=== PATIENT | female | born 1970 ===

== ENCOUNTER 2017-09-07 09:57 | Emergency (ER) | payer OTHER ==
[2017-09-07 10:11] VITALS: RESP 18; TEMP 98.3; O2SAT 98
--- NOTE | 2017-09-07 10:20 | ED PDOC ---
Arrival/HPI - General Chief Complaint: Lower Extremity Problem/Injury Time Seen by Provider: 09/07/17 10:13 Historian: Patient - History of Present Illness Narrative History of Present Illness (Text): 09/07/17 10:17 47yo female with no PMHx who present with complaint of right ankle/foot pain/ swelling. she notes that she twisted her ankle yesterday, when she slipped while walking down stairs. states she was ambulating yesterday, but pain became severe this morning. Took Tylenol without relieve. Pain with weight bearing. denies any other complaint. Past Medical History - Provider Review Nursing Documentation Reviewed: Yes - Psychiatric Hx Substance Use: No Family/Social History - Physician Review Nursing Documentation Reviewed: Yes Family/Social History: Unknown Family HX Smoking Status: Never Smoked Hx Alcohol Use: Yes Frequency of alcohol use: Socially Hx Substance Use: No Allergies/Home Meds Allergies/Adverse Reactions: Allergies No Known Allergies Allergy (Verified 09/07/17 10:10) Review of Systems - Physician Review All systems were reviewed & negative as marked: Yes - Review of Systems Constitutional: Normal Eyes: Normal ENT: Normal Respiratory: Normal Cardiovascular: Normal Gastrointestinal: Normal Genitourinary Female: Normal Musculoskeletal: Arthralgias (Right ankle/foot pain) Skin: Normal Neurological: Normal Endocrine: Normal Hemo/Lymphatic: Normal Psychiatric: Normal Physical Exam Vital Signs Reviewed: Yes Vital Signs Temp Pulse Resp BP Pulse Ox 09/07/17 12:04 82 18 125/70 98 09/07/17 11:15 86 18 124/65 98 09/07/17 10:07 98.3 F 90 18 128/66 98 Temperature: Afebrile Blood Pressure: Normal Pulse: Regular Respiratory Rate: Normal Appearance: Positive for: Well-Appearing, Non-Toxic, Comfortable Pain Distress: None Mental Status: Positive for: Alert and Oriented X 3 - Systems Exam Head: Present: Atraumatic, Normocephalic Pupils: Present: PERRL Extroacular Muscles: Present: EOMI Conjunctiva: Present: Normal Mouth: Present: Moist Mucous Membranes Neck: Present: Normal Range of Motion Respiratory/Chest: Present: Clear to Auscultation, Good Air Exchange. No: Respiratory Distress, Accessory Muscle Use Cardiovascular: Present: Regular Rate and Rhythm, Normal S1, S2. No: Murmurs Abdomen: Present: Normal Bowel Sounds. No: Tenderness, Distention, Peritoneal Signs Back: Present: Normal Inspection Upper Extremity: Present: Normal Inspection. No: Cyanosis, Edema Lower Extremity: Present: NORMAL PULSES, Normal ROM (with pain), Tenderness ( right ankle/foot), Swelling (right ankle/foot), Neurovascularly Intact. No: Edema Neurological: Present: GCS=15, CN II-XII Intact, Speech Normal Skin: Present: Warm, Dry, Normal Color. No: Rashes Psychiatric: Present: Alert, Oriented x 3, Normal Insight, Normal Concentration Medical Decision Making ED Course and Treatment: 09/07/17 11:32 Right foot/ankle xray - No acute fracture notes Result was DW the pt Pt likely have a bad sprain. Posterior splint placed. crutches given. Pt advised to RICE foot Referred to ortho TRT ED for any new or worsening symptoms - RAD Interpretation Radiology Orders: 09/07/17 10:15 ANKLE RIGHT 3 VIEWS ROUTINE [RAD] Stat 09/07/17 10:16 FOOT RIGHT 3 VIEWS ROUTINE [RAD] Stat - Medication Orders Current Medication Orders: Discontinued Medications Ibuprofen (Motrin Tab) 800 mg PO STAT STA Stop: 09/07/17 10:18 Last Admin: 09/07/17 10:42 Dose: 800 mg Disposition/Present on Arrival - Present on Arrival Any Indicators Present on Arrival: No History of DVT/PE: No History of Uncontrolled Diabetes: No Urinary Catheter: No History of Decub. Ulcer: No History Surgical Site Infection Following: None - Disposition Have Diagnosis and Disposition been Completed?: Yes Diagnosis: Ankle sprain Disposition: HOME/ ROUTINE Disposition Time: 11:35 Patient Plan: Discharge Condition: STABLE Discharge Instructions (ExitCare): Ankle Sprain (ED) Additional Instructions: Rest, Ice, compress and elevate foot Follow up with your doctor/orthopedist Return to ED for any new symptoms Prescriptions: Ibuprofen [Motrin Tab] 800 mg PO Q6 #20 tab Referrals: Oziel Brannon, [Primary Care Provider] - Follow up with primary Katy Joel MD [Staff Provider] - Follow up with primary Forms: [employer] (Romanian), WORK NOTE
--- NOTE | 2017-09-07 11:59 | RAD ---
PROCEDURE: Right Ankle Radiographs. HISTORY: ankle pain COMPARISON: None FINDINGS: BONES: No acute fracture. Small Achilles tendon insertion spur. JOINTS: Normal. No osteoarthritis. Ankle mortise maintained. Talar dome intact SOFT TISSUES: Normal. OTHER FINDINGS: None. IMPRESSION: No acute findings related to/accounting for the clinical presentation. Additional benign and/or incidental findings described above.
--- NOTE | 2017-09-07 12:00 | RAD ---
PROCEDURE: Right Foot Radiographs. HISTORY: Posttraumatic foot and ankle pain COMPARISON: NoneYuko Nguyen 2017. Right ankle reported separately. FINDINGS: BONES: Normal. No fracture. JOINTS: Normal. SOFT TISSUES: Normal. OTHER FINDINGS: None. IMPRESSION: No acute findings related to/accounting for the clinical presentation.
[2017-09-07 12:05] VITALS: BP 125/70; PULSE 82
== END 2017-09-07 12:06 | disposition home or self-care (01) ==
LOC: ED 09:57
DX: S93.401A Sprain of unspecified ligament of right ankle, initial encounter (principal); W01.0XXA Fall on same level from slipping, tripping and stumbling without subsequent striking against object, initial encounter

== ENCOUNTER 2017-09-11 23:00 | Emergency (ER) | payer OTHER ==
[2017-09-11 23:34] VITALS: BMI 29.7
--- NOTE | 2017-09-11 23:34 | ED PDOC ---
Arrival/HPI - General Historian: Patient <Nevin Fitzgerald Lillie - Last Filed: 09/12/17 01:18> <Yinka Silverman - Last Filed: 09/12/17 01:42> - General Time Seen by Provider: 09/11/17 23:27 - History of Present Illness Narrative History of Present Illness (Text): 09/11/17 23:31 47yo female in ED for right foot/ankle pain. Patient states she was seen here on Wednesday for same foot pain s/p trauma. She was DC home with a splint. States she took out the splint today and while trying to walk, she heard a "popping" sound and then pain became worse this morning. She denies calf pain, SOB, chest pain, diaphoresis. (Nevin Fitzgerald A) Past Medical History - Provider Review Nursing Documentation Reviewed: Yes - Psychiatric Hx Substance Use: No <Nevin Fitzgerald A - Last Filed: 09/12/17 01:18> Family/Social History - Physician Review Nursing Documentation Reviewed: Yes Family/Social History: Unknown Family HX Smoking Status: Never Smoked Hx Alcohol Use: Yes Hx Substance Use: No <Nevin Fitzgerald A - Last Filed: 09/12/17 01:18> Allergies/Home Meds <Nevin Fitzgerald A - Last Filed: 09/12/17 01:18> <Yinka Silverman - Last Filed: 09/12/17 01:42> Allergies/Adverse Reactions: Allergies No Known Allergies Allergy (Verified 09/07/17 10:10) Review of Systems - Physician Review All systems were reviewed & negative as marked: Yes - Review of Systems Constitutional: Normal Eyes: Normal ENT: Normal Respiratory: Normal Cardiovascular: Normal Gastrointestinal: Normal Genitourinary Female: Normal Musculoskeletal: Arthralgias (Right foot/ankle pain) Skin: Normal Neurological: Normal Endocrine: Normal Hemo/Lymphatic: Normal Psychiatric: Normal <Nevin Fitzgerald A - Last Filed: 09/12/17 01:18> Physical Exam Vital Signs Reviewed: Yes Temperature: Afebrile Blood Pressure: Normal Pulse: Regular Respiratory Rate: Normal Appearance: Positive for: Well-Appearing, Non-Toxic, Comfortable Pain Distress: None Mental Status: Positive for: Alert and Oriented X 3 - Systems Exam Head: Present: Atraumatic, Normocephalic Pupils: Present: PERRL Extroacular Muscles: Present: EOMI Conjunctiva: Present: Normal Mouth: Present: Moist Mucous Membranes Neck: Present: Normal Range of Motion Respiratory/Chest: Present: Clear to Auscultation, Good Air Exchange. No: Respiratory Distress, Accessory Muscle Use Cardiovascular: Present: Regular Rate and Rhythm, Normal S1, S2. No: Murmurs Abdomen: Present: Normal Bowel Sounds. No: Tenderness, Distention, Peritoneal Signs Back: Present: Normal Inspection Upper Extremity: Present: Normal Inspection. No: Cyanosis, Edema Lower Extremity: Present: NORMAL PULSES, Normal ROM (With pain), Tenderness ( Right foot/ankle), Swelling, Temperature Abnormalties. No: Edema, CALF TENDERNESS Neurological: Present: GCS=15, CN II-XII Intact, Speech Normal Skin: Present: Warm, Dry, Normal Color. No: Rashes Psychiatric: Present: Alert, Oriented x 3, Normal Insight, Normal Concentration <Nevin Fitzgerald - Last Filed: 09/12/17 01:18> Vital Signs Pulse Resp BP Pulse Ox 09/11/17 23:34 112 H 18 130/73 99 Medical Decision Making <Nevin Fitzgerald - Last Filed: 09/12/17 01:18> <Yinka Silverman - Last Filed: 09/12/17 01:42> ED Course and Treatment: 09/12/17 01:20 Right foot/ankle xray - No acute fracture. xray was compared to xray from the and it remain same. Dr. Silverman also reviewed xray Result was DW the pt. Jung wrap and air cast was placed. Pt already have crutches at home and was instructed to continue using it. Referred to ortho again. Advised to RICE ankle/foot again. (Nevin Fitzgerald A) - RAD Interpretation Radiology Orders: 09/11/17 23:28 ANKLE RIGHT 3 VIEWS ROUTINE [RAD] Stat FOOT RIGHT 3 VIEWS ROUTINE [RAD] Stat - PA / RESTAURANT RECRUITER / Resident Statement / has reviewed & agrees with the documentation as recorded. / has examined the patient and agrees with the treatment plan. <Yinka Silverman - Last Filed: 09/12/17 01:42> Disposition/Present on Arrival - Present on Arrival Any Indicators Present on Arrival: No History of DVT/PE: No History of Uncontrolled Diabetes: No Urinary Catheter: No History Surgical Site Infection Following: None - Disposition Have Diagnosis and Disposition been Completed?: Yes Disposition Time: 01:20 Patient Plan: Discharge <Nevin Fitzgerald - Last Filed: 09/12/17 01:18> <Yinka Silverman - Last Filed: 09/12/17 01:42> - Disposition Diagnosis: Ankle sprain, Foot sprain Disposition: HOME/ ROUTINE Condition: STABLE Discharge Instructions (ExitCare): Ankle Sprain (ED) Additional Instructions: Follow up with orthopedist Return to ED for new symptoms Referrals: Katy Joel MD [Staff Provider] - Follow up with primary Forms: WORK NOTE
[2017-09-11 23:38] VITALS: RESP 18; O2SAT 99
[2017-09-12 02:13] VITALS: BP 129/77; PULSE 77; TEMP 97.6
--- NOTE | 2017-09-12 08:45 | RAD ---
PROCEDURE: Right Ankle Radiographs. HISTORY: ankle pain s/p trauma COMPARISON: None FINDINGS: BONES: Normal. No fracture. JOINTS: Normal. No osteoarthritis. Ankle mortise maintained. Talar dome intact SOFT TISSUES: Normal. OTHER FINDINGS: None. IMPRESSION: Normal right ankle radiographs.
--- NOTE | 2017-09-12 08:47 | RAD ---
PROCEDURE: Right Foot Radiographs. HISTORY: foot pain s/p trauma COMPARISON: None. FINDINGS: BONES: Normal. No fracture. JOINTS: Normal. SOFT TISSUES: Normal. OTHER FINDINGS: None. IMPRESSION: Normal right foot radiographs.
== END 2017-09-12 02:13 | disposition home or self-care (01) ==
LOC: ED 23:00
DX: M25.571 Pain in right ankle and joints of right foot (principal)

== ENCOUNTER 2017-09-14 13:05 | Emergency (ER) | payer OTHER ==
[2017-09-14 13:05] VITALS: BMI 29.7
[2017-09-14] MEDS ORDERED: Piperacill/Tazo 4.5gm in NS 4.5 GM/100 ML BAG IVPB STA (16:19)
[2017-09-14] MEDS ORDERED: Morphine 4 mg/ml ISec IVP STA (16:21)
[2017-09-14] MEDS ORDERED: Acyclovir 500 MG in Sodium Chloride 0.9% 100 ML IV STA (16:22)
[2017-09-14 17:52] LABS: BASO # 0.01 K/mm3 (0.0-2.0); BASO % 0.2 % (0.0-3.0); GRAN # 4.29 (1.4-6.5); GRAN % 73.7 % (50.0-68.0); HEMOGLOBIN 13.1 g/dL (12.0-16.0); LYMPH # 1.1 (1.2-3.4); LYMPH % 18.9 % (22.0-35.0); MEAN CELL VOLUME 92.7 fl (80.0-105.0); MEAN CORPUSCULAR HEMOGLOBIN 30.8 pg (25.0-35.0); MEAN CORPUSCULAR HGB CONC 33.2 g/dl (31.0-37.0); MEAN PLATELET VOLUME 12.4 fl (7.0-11.0); MONO # 0.4 (0.1-0.6); MONO % 7.2 % (1.0-6.0); RBC 4.25 10^6/uL (3.5-6.1); RED CELL DISTRIBUTION WIDTH 13.1 % (11.5-14.5); WHITE BLOOD COUNT 5.8 10^3/ul (4.5-11.0)
[2017-09-14 18:30] LABS: ALB/GLOB RATIO 1.3 (1.1-1.8); ALBUMIN 4.5 g/dL (3.0-4.8); ALT/SGPT 53 U/L (7-56); AST/SGOT 47 U/L (14-36); BLOOD UREA NITROGEN 12 mg/dL (7-21); CALCIUM 9.5 mg/dL (8.4-10.5); GFR AFRICAN-AMERICAN > 60; GFR NON-AFRICAN AMERICAN > 60
[2017-09-14 18:54] LABS: URINE BILIRUBIN NEGATIVE (NEGATIVE); URINE BLOOD MODERATE (NEGATIVE); URINE GLUCOSE (UA) NEGATIVE (NEGATIVE); URINE LEUKOCYTE ESTERASE LARGE Leu/uL (NEGATIVE); URINE NITRATE NEGATIVE (NEGATIVE); URINE PROTEIN TRACE mg/dL (<30 mg/dL); URINE UROBILINOGEN 0.2 E.U./dL (<1 E.U./dL)
[2017-09-14 18:58] LABS: URINE APPEARANCE SL CLOUDY (CLEAR); URINE COLOR YELLOW (YELLOW)
[2017-09-14 19:03] VITALS: TEMP 98.9
[2017-09-14 19:09] LABS: URINE WBC TNTC /hpf (0-6)
[2017-09-14 19:10] LABS: HCG,QUALITATIVE URINE NEGATIVE (NEGATIVE); URINE BACTERIA MANY (NEG)
--- NOTE | 2017-09-14 19:12 | ED PDOC ---
Arrival/HPI - General Chief Complaint: Female Genitourinary Time Seen by Provider: 09/14/17 14:12 Historian: Patient - History of Present Illness Narrative History of Present Illness (Text): 09/14/17 16:08 This 47 yo female who denies pmh presents to this ED c/o painful vaginal rash, dysuria x 8 days. Patient stated pain has worsen today. Patient denies pelvic pain, drainage, urinary frequency, recent travel, or sic contact. Patient stated she believes she has herpes. Patient denies similar rash in the past. Time/Duration: Other (see hpi) Context: Home Past Medical History - Provider Review Nursing Documentation Reviewed: Yes - Reproductive Menopause: No - Psychiatric Hx Substance Use: No - Surgical History Other/Comment: rt ankle injury on splint - Anesthesia Hx Anesthesia: No Hx Anesthesia Reactions: No Hx Malignant Hyperthermia: No Family/Social History - Physician Review Nursing Documentation Reviewed: Yes Family/Social History: Other (noncontributory) Smoking Status: Never Smoked Hx Alcohol Use: Yes Hx Substance Use: No Allergies/Home Meds Allergies/Adverse Reactions: Allergies No Known Allergies Allergy (Verified 09/14/17 14:27) Review of Systems - Review of Systems Constitutional: Normal. absent: Fatigue, Weight Change, Fevers Eyes: Normal ENT: Normal Respiratory: Normal Cardiovascular: Normal Gastrointestinal: Normal Genitourinary Female: Dysuria, Other (see hpi). absent: Frequency, Hematuria, Vaginal Bleeding, Vaginal Discharge Musculoskeletal: Normal Skin: Normal Neurological: Normal Endocrine: Normal Hemo/Lymphatic: Normal Psychiatric: Normal Physical Exam Vital Signs Temp Pulse Resp BP Pulse Ox 09/14/17 20:37 89 18 126/90 97 09/14/17 18:50 98.9 F 86 16 128/79 99 09/14/17 14:23 99.2 F 92 H 16 112/77 100 Temperature: Afebrile Blood Pressure: Normal Pulse: Regular Respiratory Rate: Normal Appearance: Positive for: Well-Appearing, Non-Toxic, Comfortable Pain Distress: None Mental Status: Positive for: Alert and Oriented X 3 - Systems Exam Head: Present: Atraumatic, Normocephalic Pupils: Present: PERRL Extroacular Muscles: Present: EOMI Conjunctiva: Present: Normal Mouth: Present: Moist Mucous Membranes Neck: Present: Normal Range of Motion Respiratory/Chest: Present: Clear to Auscultation, Good Air Exchange. No: Respiratory Distress, Accessory Muscle Use Cardiovascular: Present: Regular Rate and Rhythm, Normal S1, S2. No: Murmurs Abdomen: Present: Normal Bowel Sounds. No: Tenderness, Distention, Peritoneal Signs Genitourinary/Pelvic Exam: Present: Vaginal Discharge (trace), Vaginal Lesions ( tender vesiacuar like lesion, with surrounding erythema. No abscess noted), Other (pelvic deferred by pt due to pain). No: Normal External Genitalia, Vaginal Bleeding Back: Present: Normal Inspection. No: CVA Tenderness Upper Extremity: Present: Normal Inspection, Normal ROM. No: Cyanosis, Edema Lower Extremity: Present: Normal Inspection, Normal ROM. No: Edema Neurological: Present: GCS=15, CN II-XII Intact, Speech Normal Skin: Present: Warm, Dry, Normal Color. No: Rashes Psychiatric: Present: Alert, Oriented x 3, Normal Insight, Normal Concentration Medical Decision Making ED Course and Treatment: 09/14/17 19:16 Re-evaluation. Patient feels better. Discussed results and plan with patient who expresses understanding. All questions answered and there is agreement with the plan to discharge home with instructions. Patient stable for discharge. Return if symptoms persist or worsen I recommended patient to review STD test result in 2-3 days, and herpes test. I also recommended patient to f/u private WORKFORCE DEVELOPMENT ASSISTANT doctor in 2-3 days or women clinic. To return to emergency if pain worsen, rash worsen, fever, or new symptoms develop. Patient understood plan. 09/17/17 14:31 I spoke with patient , and she stated she is feeling "100%" better. She was very thankful for the care, and medication is helping. She has an appointment to see WORKFORCE DEVELOPMENT ASSISTANT Re-evaluation Time: 19:15 Reassessment Condition: Re-examined, Improved - Lab Interpretations Microbiology Results: Microbiology Results 09/14/17 18:12 Urine Urine Culture - Final Beta Hemolytic Strep Group B Lab Results: 09/14/17 17:00 09/14/17 17:00 Lab Results 09/14/17 18:12: Urine Color Yellow, Urine Appearance Sl cloudy, Urine pH 6.0, Ur Specific [place] 1.015, Urine Protein Trace H, Urine Glucose (UA) Negative, Urine Ketones 15 H, Urine Blood Moderate H, Urine Nitrate Negative, Urine Bilirubin Negative, Urine Urobilinogen 0.2, Ur Leukocyte Esterase Large H, Urine RBC 2 - 5, Urine WBC Tntc, Ur Epithelial Cells 3 - 4, Urine Bacteria Many , Urine HCG, Qual Negative 09/14/17 17:00: Herpesvirus 6 IgG Ab 1:40 H, Herpesvirus 6 IgM Ab <1:20, Herpesvirus 6 Interp Past infection, Herpesvirus 8 IgG Ab <1:20 09/14/17 17:00: Sodium 137, Potassium 3.6, Chloride 99, Carbon Dioxide 26, Anion Gap 16, BUN 12, Creatinine 0.7, Est GFR ( Amer) > 60, Est GFR (Non- Af Amer) > 60, Random Glucose 84, Calcium 9.5, Total Bilirubin 0.6, AST 47 H, ALT 53, Alkaline Phosphatase 62, Total Protein 7.9, Albumin 4.5, Globulin 3.4, Albumin/Globulin Ratio 1.3 09/14/17 17:00: WBC 5.8, RBC 4.25, Hgb 13.1, Hct 39.4, MCV 92.7, MCH 30.8, MCHC 33.2, RDW 13.1, Plt Count 191, MPV 12.4 H, Gran % 73.7 H, Lymph % (Auto) 18.9 L , [place] % (Auto) 7.2 H, Eos % (Auto) 0.0 L, Baso % (Auto) 0.2, Gran # 4.29, Lymph # 1.1 L, [place] # 0.4, Eos # 0.0, Baso # 0.01, ESR 60 H I have reviewed the lab results: Yes Interpretation: Abnormal lab values (ua is positive) - Medication Orders Current Medication Orders: Discontinued Medications Fluconazole (Diflucan) 200 mg PO STAT STA PRN Reason: Protocol Stop: 09/14/17 19:31 Last Admin: 09/14/17 20:37 Dose: 200 mg Acyclovir 500 mg/ Sodium (Chloride) 100 mls @ 100 mls/hr IV STAT STA PRN Reason: Protocol Stop: 09/14/17 17:21 Last Admin: 09/14/17 17:02 Dose: 100 mls/hr eMAR Start Stop Document 09/14/17 17:02 MS (Rec: 09/14/17 17:02 [place] [facility] [id number] Intravenous Solution Start Date 09/14/17 Start Time 17:02 End Date 01/16/18 End time 18:02 Total Infusion Time 60 Piperacillin Sod/Tazobactam Sod (Zosyn 4.5 Gm In Ns 100ml) 4.5 gm in 100 mls @ 200 mls/hr IVPB STAT STA PRN Reason: Protocol Stop: 09/14/17 16:48 Last Admin: 09/14/17 18:40 Dose: 200 mls/hr eMAR Start Stop Document 09/14/17 18:40 MS (Rec: 09/14/17 19:14 [id number] Intravenous Solution Start Date 09/14/17 Start Time 19:14 End Date 09/14/17 End time 19:44 Total Infusion Time 30 Morphine Sulfate (Morphine) 4 mg IVP STAT STA Stop: 09/14/17 16:22 Last Admin: 09/14/17 17:02 Dose: 4 mg MAR Pain Assessment Document 09/14/17 17:02 MS (Rec: 09/14/17 17:03 [place] [facility] [id number] Pain Reassessment Is this a pain reassessment? No Sleep Is patient sleeping during reassessment? No Presence of Pain Presence of Pain Yes Pain Scale Used Pain Scale Used Numeric Location Pain Location Body Site Groin Description Description Constant Intensity of Pain at present 10 Pain Behavior Moaning Withdrawal from Touch Facial Grimacing IVP Administration Document 09/14/17 17:02 MS (Rec: 09/14/17 17:03 [place] [id number] Charges for Administration # of IVP Administrations 1 Ondansetron HCl (Zofran Inj) 4 mg IVP STAT STA Stop: 09/14/17 16:22 Last Admin: 09/14/17 17:02 Dose: 4 mg IVP Administration Document 09/14/17 17:02 MS (Rec: 09/14/17 17:02 [place] [id number] Charges for Administration # of IVP Administrations 1 Disposition/Present on Arrival - Present on Arrival Any Indicators Present on Arrival: No History of DVT/PE: No History of Uncontrolled Diabetes: No Urinary Catheter: No History of Decub. Ulcer: No History Surgical Site Infection Following: None - Disposition Have Diagnosis and Disposition been Completed?: Yes Diagnosis: Vulvovaginal rash, Cellulitis Disposition: HOME/ ROUTINE Disposition Time: 19:19 Patient Plan: Discharge Condition: IMPROVED Discharge Instructions (ExitCare): Cellulitis (ED), [place] (GEN) Additional Instructions: Call private WORKFORCE DEVELOPMENT ASSISTANT doctor office in 2-3 days for revaluation. Take medication as instructed. return to emergency sooner if symptoms worsen, or unable to see your circuit breaker supervisor doctor. Hand wash at all times. Do not drive or operate machinery if you are taking Percocet for at least 8 hours. Make sure to review STD and Herpes test result in 2-3 days with your doctor. Prescriptions: Amoxicillin/Clavulanate [Augmentin 875 MG-125 MG] 1 tab PO BID #14 tab Lidocaine 5% 1 appl TP BID PRN #1 tube PRN Reason: Pain, Severe (8-10) oxyCODONE/Acetaminophen [Percocet 5/325 mg Tab] 1 ea PO Q6H PRN #12 tab PRN Reason: Pain, Severe (8-10) Valacyclovir HCl [Valtrex] 1 gm PO Q12H #20 tablet Referrals: [facility] [Outside] - Follow up with [facility] [Outside] - Follow up with primary Forms: [employer] (Icelandic)
[2017-09-14 22:38] VITALS: BP 126/90; PULSE 89; RESP 18; O2SAT 97
[2017-09-16 18:26] LABS: HERPESVIRUS 8 IgG AB IFA <1:20
[2017-09-16 22:34] LABS: INTERPRETATION PAST INFECTION
== END 2017-09-14 20:58 | disposition home or self-care (01) ==
LOC: ED 13:05
DX: N76.0 Acute vaginitis (principal)
CPT/HCPCS: 80053; 81001; 84703; 85025; 85651; 86790; 87086; 87181; 96365; 96367; 96375; 99283; J0133; J2270; J2405; J2543

== ENCOUNTER 2018-08-16 09:16 | Emergency (ER) | payer MEDICAID, OTHER ==
[2018-08-16 09:23] VITALS: BMI 32.5
[2018-08-16 09:26] VITALS: RESP 18
[2018-08-16] MEDS ORDERED: Sodium Chloride 0.9% 1,000 ML IV STA (09:30)
--- NOTE | 2018-08-16 09:35 | ED PDOC ---
Arrival/HPI - General Chief Complaint: Flu-like Symptoms Time Seen by Provider: 08/16/18 09:20 Historian: Patient - History of Present Illness Narrative History of Present Illness (Text): 08/16/18 09:30 47 year old female, with no significant past medical history presents to the emergency department complaining of cough, congestion, and lightheadedness for the past day. Patient reports dry cough yesterday with worsening sinus congestion. She states it was difficult getting out of bed this morning secondary to lightheadedness. She notes, she has experienced these symptoms previously and felt better with antibiotics. She denies taking any medication, any sick contact, and did not receive the flu shot. Patient denies fever, chills, sore throat, vision changes, headache, neck pain, abdominal pain, vomiting, diarrhea, urinary symptoms, Time/Duration: 24 hours Symptom Course: Worsening Activities at Onset: Light Context: Home Past Medical History - Provider Review Nursing Documentation Reviewed: Yes - Infectious Disease Hx of Infectious Diseases: None - Pulmonary Hx Bronchitis: Yes - Psychiatric Hx Substance Use: No - Surgical History Other/Comment: rt ankle injury on splint - Anesthesia Hx Anesthesia: No Hx Anesthesia Reactions: No Hx Malignant Hyperthermia: No Family/Social History - Physician Review Nursing Documentation Reviewed: Yes Family/Social History: No Known Family HX Smoking Status: Never Smoked Hx Alcohol Use: Yes Hx Substance Use: No Allergies/Home Meds Allergies/Adverse Reactions: Allergies No Known Allergies Allergy (Verified 09/14/17 14:27) Review of Systems - Physician Review All systems were reviewed & negative as marked: Yes - Review of Systems Constitutional: Normal. absent: Fevers Eyes: Normal. absent: Vision Changes ENT: Sinus Congestion. absent: Sore Throat Respiratory: Cough, Sputum. absent: SOB Cardiovascular: absent: Chest Pain, Palpitations, Calf Pain, Syncope Gastrointestinal: Normal. absent: Abdominal Pain, Stool Changes, Diarrhea, Nausea, Vomiting, Appetite Changes Genitourinary Female: Normal. absent: Dysuria, Frequency, Urine Output Changes, Vaginal Discharge Musculoskeletal: absent: Back Pain, Neck Pain Skin: Normal Neurological: Other (light headed ). absent: Headache, Focal Weakness, Gait Changes, Speech Changes, Disequilibrium Endocrine: Normal Hemo/Lymphatic: Normal Psychiatric: Normal Physical Exam Vital Signs Reviewed: Yes Vital Signs Temp Pulse Resp BP Pulse Ox 08/16/18 09:16 98.5 F 90 18 135/97 H 97 Temperature: Afebrile Blood Pressure: Normal Pulse: Regular Respiratory Rate: Normal Appearance: Positive for: Well-Appearing, Non-Toxic, Comfortable Pain Distress: None Mental Status: Positive for: Alert and Oriented X 3 - Systems Exam Head: Present: Atraumatic, Normocephalic Pupils: Present: PERRL Extroacular Muscles: Present: EOMI Conjunctiva: Present: Normal Ears: Present: Normal, NORMAL TM Mouth: Present: Moist Mucous Membranes Pharnyx: Present: Normal. No: ERYTHEMA, EXUDATE, TONSILS ENLARGED Nose (External): Present: Atraumatic Nose (Internal): Present: Normal Inspection, Moist Neck: Present: Normal Range of Motion. No: Meningeal Signs, MIDLINE TENDERNESS, Paraspinal Tenderness, Lymphadenopathy Respiratory/Chest: Present: Clear to Auscultation, Good Air Exchange. No: Respiratory Distress, Accessory Muscle Use Cardiovascular: Present: Regular Rate and Rhythm, Normal S1, S2, Peripheal Pulses Present. No: Murmurs Abdomen: Present: Normal Bowel Sounds. No: Tenderness, Distention, Peritoneal Signs, Rebound, Guarding Back: Present: Normal Inspection. No: CVA Tenderness Upper Extremity: Present: Normal Inspection, Normal ROM, NORMAL PULSES, Mayo rovascularly Intact, Capillary Refill < 2s. No: Cyanosis, Edema, Temperature Abnormalties Lower Extremity: Present: Normal Inspection, NORMAL PULSES, Normal ROM, Neurovascularly Intact, Capillary Refill < 2 s. No: Edema, CALF TENDERNESS, Kristi's Sign, Temperature Abnormalties Neurological: Present: GCS=15, CN II-XII Intact, Speech Normal, Motor Func Grossly Intact, Gait Normal Skin: Present: Warm, Dry, Normal Color. No: Rashes Lymphatic: No: Cervical Adenopathy Psychiatric: Present: Alert, Oriented x 3, Normal Insight, Normal Concentration, Normal Affect, Normal Mood Medical Decision Making ED Course and Treatment: 08/16/18 09:30 Impression: 47 year old female who presents to the emergency department complaining of cough , congestion, and lightheadedness. Plan: -- Labs -- Chest X-ray -- EKG -- IV fluids -- Fingerstick -- POC urine test -- Influenza A B -- Urinalysis -- Reassess and disposition Prior Visits: Notes and results from previous visits were reviewed. Progress Notes: 10:43 Patient feeling much better after fluids. Dizziness has resolved. Pending CXR, EKG. 11:45 CXR: no active disease EKG shows no acute changes Labs unremarkable Will discharge with Z-Juan Carlos and Robitussin secondary to productive cough. Diagnostic testing results and plan of care discussed with patient, and strict instructions given regarding prescriptions, importance of follow up, and signs to return to Emergency Department, to include headache, weakness, paresthesias, chest pain, SOB, or any other new/worsening symptoms. Patient verbalizes understanding of discussion. Patient A&Ox3, ambulating with steady gait, stable for discharge home. - Lab Interpretations Lab Results: 08/16/18 10:00 08/16/18 10:00 Lab Results 08/16/18 10:20: Urine Color Yellow, Urine Appearance Clear, Urine pH 7.5, Ur Specific [place] 1.010, Urine Protein Negative, Urine Glucose (UA) Negative, Urine Ketones Negative, Urine Blood Negative, Urine Nitrate Negative, Urine Bilirubin Negative, Urine Urobilinogen 0.2, Ur Leukocyte Esterase Negative 08/16/18 10:03: POC Glucose (mg/dL) 88 08/16/18 10:00: Sodium 137, Potassium 4.2, Chloride 104, Carbon Dioxide 22, Anion Gap 14, BUN 13, Creatinine 0.6 L, Est GFR ( Amer) > 60, Est GFR (Non-Af Amer) > 60, Random Glucose 118 H, Calcium 10.0, Phosphorus 1.8 L, Magnesium 1.7, Total Bilirubin 0.5, AST 39 H, ALT 48, Alkaline Phosphatase 64, Total Protein 7.3, Albumin 4.5, Globulin 2.8, Albumin/Globulin Ratio 1.6 08/16/18 10:00: WBC 6.1, RBC 4.50, Hgb 14.0, Hct 41.3, MCV 91.8, MCH 31.1, MCHC 33.9, RDW 12.8, Plt Count 217, MPV 12.3 H, Gran % 78.0 H, Lymph % (Auto) 13.7 L, Quay % (Auto) 7.3 H, Eos % (Auto) 0.7 L, Baso % (Auto) 0.3, Gran # 4.79, Lymph # (Auto) 0.8 L, Quay # (Auto) 0.5, Eos # (Auto) 0.0, Baso # (Auto) 0.02 08/16/18 09:35: Influenza Typ A,B (EIA) Negative for flu a/b I have reviewed the lab results: Yes Interpretation: No sign. 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 I have reviewed the chart and agree that the record accurately reflects my personal performance of the history, physical exam, medical decision making, and the department course for this patient. I have also personally directed, reviewed, and agree with the discharge instructions and disposition. Disposition/Present on Arrival - Present on Arrival Any Indicators Present on Arrival: No History of DVT/PE: No History of Uncontrolled Diabetes: No Urinary Catheter: No History of Decub. Ulcer: No History Surgical Site Infection Following: None - Disposition Have Diagnosis and Disposition been Completed?: Yes Diagnosis: Upper respiratory infection Disposition: HOME/ ROUTINE Disposition Time: 12:20 Patient Plan: Discharge Condition: IMPROVED Discharge Instructions (ExitCare): Viral Upper Respiratory Infection, Adult (DC) Additional Instructions: Take Z-juan carlos as prescribed Take robitussin as prescribed Increase fluids Rest, no strenuous activity Followup with PMD within 2 days Return to ED with any new/worsening symptoms Prescriptions: Azithromycin [Z-Juan Carlos] 250 mg PO DAILY #6 tab guaiFENesin [guaifENESIN] 100 mg PO Q4H PRN #1 bottle PRN Reason: Cough Referrals: [facility] [place] - Follow up with primary Maegan Baez MD [Medical Doctor] - Follow up with primary Forms: [employer] ([place]), WORK NOTE
[2018-08-16 10:09] LABS: BASO # 0.02 K/mm3 (0.0-2.0); BASO % 0.3 % (0.0-3.0); EOS % 0.7 % (1.5-5.0); GRAN # 4.79 (1.4-6.5); LYMPH # 0.8 (1.2-3.4); LYMPH % 13.7 % (22.0-35.0); MEAN CELL VOLUME 91.8 fl (80.0-105.0); MEAN CORPUSCULAR HEMOGLOBIN 31.1 pg (25.0-35.0); MEAN CORPUSCULAR HGB CONC 33.9 g/dl (31.0-37.0); MEAN PLATELET VOLUME 12.3 fl (7.0-11.0); MONO # 0.5 (0.1-0.6); MONO % 7.3 % (1.0-6.0); RBC 4.5 10^6/uL (3.5-6.1); RED CELL DISTRIBUTION WIDTH 12.8 % (11.5-14.5); WHITE BLOOD COUNT 6.1 10^3/uL (4.5-11.0)
[2018-08-16 10:19] LABS: ALB/GLOB RATIO 1.6 (1.1-1.8); ALBUMIN 4.5 g/dL (3.0-4.8); ALT/SGPT 48 U/L (7-56); AST/SGOT 39 U/L (14-36); BLOOD UREA NITROGEN 13 mg/dL (7-21); GFR NON-AFRICAN AMERICAN > 60
[2018-08-16 10:30] LABS: PH,URINE 7.5 (4.7-8.0); URINE BILIRUBIN NEGATIVE (NEGATIVE); URINE BLOOD NEGATIVE (NEGATIVE); URINE GLUCOSE (UA) NEGATIVE (NEGATIVE); URINE LEUKOCYTE ESTERASE NEGATIVE Leu/uL (NEGATIVE); URINE PROTEIN NEGATIVE mg/dL (<30 mg/dL); URINE UROBILINOGEN 0.2 E.U./dL (<1 E.U./dL)
[2018-08-16 10:31] LABS: URINE APPEARANCE CLEAR (CLEAR); URINE COLOR YELLOW (YELLOW)
[2018-08-16 12:31] VITALS: BP 102/45; PULSE 74; TEMP 98.2; O2SAT 99
--- NOTE | 2018-08-16 13:28 | RAD ---
Date of service: 08/16/2018 HISTORY: cough COMPARISON: No prior. TECHNIQUE: Chest PA and lateral FINDINGS: LUNGS: No active pulmonary disease. PLEURA: No significant pleural effusion identified. No pneumothorax apparent. CARDIOVASCULAR: No aortic atherosclerotic calcification present. Normal cardiac size. No pulmonary vascular congestion. OSSEOUS STRUCTURES: No significant abnormalities. VISUALIZED UPPER ABDOMEN: Normal. OTHER FINDINGS: None. IMPRESSION: No active disease.
--- NOTE | 2018-08-17 07:59 | CARD ---
APPROVED REPORT Date of service: 08/16/2018 EKG Measurement Heart [id number] <Conclusion> Normal sinus rhythm Normal ECG
== END 2018-08-16 12:50 | disposition home or self-care (01) ==
LOC: ED 09:16
DX: J06.9 Acute upper respiratory infection, unspecified (principal)
CPT/HCPCS: 71046; 80053; 81003; 82948; 83735; 84100; 85025; 87804; 93005; 96374; 99283; J2405; J7030

== ENCOUNTER 2018-09-27 11:37 | Emergency (ER) | payer OTHER ==
[2018-09-27 12:08] VITALS: BMI 32.1
[2018-09-27 12:09] VITALS: PULSE 80; RESP 18; O2SAT 99
[2018-09-27 13:36] LABS: BASO # 0.02 K/mm3 (0.0-2.0); BASO % 0.4 % (0.0-3.0); EOS # 0.1 (0.0-0.7); EOS % 1.9 % (1.5-5.0); HEMOGLOBIN 13.7 g/dL (12.0-16.0); LYMPH # 1.4 (1.2-3.4); LYMPH % 29.2 % (22.0-35.0); MEAN CELL VOLUME 92.6 fl (80.0-105.0); MEAN CORPUSCULAR HEMOGLOBIN 30.6 pg (25.0-35.0); MEAN PLATELET VOLUME 12.2 fl (7.0-11.0); MONO # 0.3 (0.1-0.6); MONO % 5.2 % (1.0-6.0); PH,URINE 6.5 (4.7-8.0); RBC 4.48 10^6/uL (3.5-6.1); RED CELL DISTRIBUTION WIDTH 12.6 % (11.5-14.5); URINE BILIRUBIN NEGATIVE (NEGATIVE); URINE BLOOD NEGATIVE (NEGATIVE); URINE GLUCOSE (UA) NEGATIVE (NEGATIVE); URINE LEUKOCYTE ESTERASE NEGATIVE Leu/uL (NEGATIVE); URINE PROTEIN NEGATIVE mg/dL (<30 mg/dL); URINE UROBILINOGEN 0.2 E.U./dL (<1 E.U./dL); WHITE BLOOD COUNT 4.8 10^3/uL (4.5-11.0)
[2018-09-27 13:41] LABS: URINE APPEARANCE CLEAR (CLEAR); URINE COLOR YELLOW (YELLOW)
[2018-09-27 13:43] LABS: ALB/GLOB RATIO 1.6 (1.1-1.8); ALBUMIN 4.5 g/dL (3.0-4.8); ALT/SGPT 35 U/L (7-56); AST/SGOT 30 U/L (14-36); BLOOD UREA NITROGEN 8 mg/dL (7-21); CALCIUM 9.9 mg/dL (8.4-10.5); GFR NON-AFRICAN AMERICAN > 60
--- NOTE | 2018-09-27 13:51 | ED PDOC ---
Arrival/HPI - General Chief Complaint: Abdominal Pain Time Seen by Provider: 09/27/18 11:47 Historian: Patient - History of Present Illness Narrative History of Present Illness (Text): 09/27/18 11:47 Patient is a 48 year old female with no significant past medical history arriving to the Emergency department with left lower quadrant abdominal pain for 2 days. She states that she has been constipated with the pain worsening status post bowel movement today. Her LNMP was on 08/23/18. Patient informs associated dizziness, but denies any fevers, chills, headache, chest pain, shortness of breath, dyspnea on exertion, cough, nausea, vomiting, diarrhea, back pain, neck pain, urinary symptoms or any other complaint. Time/Duration: < week Symptom Onset: Gradual Symptom Course: Unchanged Activities at Onset: Light Context: Home Past Medical History - Provider Review Nursing Documentation Reviewed: Yes - Infectious Disease Hx of Infectious Diseases: None - Reproductive Currently : Unknown - Pulmonary Hx Bronchitis: Yes - Psychiatric Hx Substance Use: No - Surgical History Other/Comment: rt ankle injury on splint - Anesthesia Hx Anesthesia: No Hx Anesthesia Reactions: No Hx Malignant Hyperthermia: No Family/Social History - Physician Review Nursing Documentation Reviewed: Yes Family/Social History: No Known Family HX Smoking Status: Never Smoked Hx Alcohol Use: Yes Hx Substance Use: No Allergies/Home Meds Allergies/Adverse Reactions: Allergies No Known Allergies Allergy (Verified 09/14/17 14:27) Review of Systems - Physician Review All systems were reviewed & negative as marked: Yes - Review of Systems Constitutional: absent: Fevers, Night Sweats Respiratory: absent: SOB, Cough Cardiovascular: absent: Chest Pain, PALACIO Gastrointestinal: Abdominal Pain. absent: Diarrhea, Nausea, Vomiting Genitourinary Female: absent: Dysuria, Hematuria Musculoskeletal: absent: Back Pain, Neck Pain Neurological: Dizziness. absent: Headache Physical Exam - Physical Exam Narrative Physical Exam (Text): 09/27/18 11:47 Gen: VS reviewed, alert, well developed, well nourished, nontoxic, mild distress. ENT: normal pharynx. Eye: EOMI, PERRL. Neck: no JVD, supple, no adenopathy. CV: regular rate, regular rhythm, no rubs, no murmur, no gallops, S1, S2, pulses equal and strong. Pulm: no distress, clear to auscultation, no wheeze, no rhonchi, breath sounds equal, no rales. Abd: left pelvic tenderness, no guarding, no rebound, no rigidity, normal bowel sounds. Ext: no edema. Skin: good color, no rash, no cyanosis. Psych: responds appropriately to questions, normal affect. Neuro: oriented x 3, CN2-12 intact grossly, motor intact, sensation intact. Vital Signs Reviewed: Yes Vital Signs Temp Pulse Resp BP Pulse Ox 09/27/18 12:08 98.1 F 80 18 126/84 99 Temperature: Afebrile Blood Pressure: Normal Pulse: Regular Respiratory Rate: Normal Appearance: Positive for: Well-Appearing, Non-Toxic, Comfortable Pain Distress: None Mental Status: Positive for: Alert and Oriented X 3 Medical Decision Making ED Course and Treatment: 09/27/18 11:47 Impression: Patient is a 48 year old female with who presented to the emergency department with complaints of left lower quadrant abdominal pain. Plan: - NPO - IV Insertion - POC - US [Transvaginal] - Labs - Urinalysis -- Reassess and disposition Prior Visits: Notes and results from previous visits were reviewed. 09/27/18 16:45 patient seen for llq pain, CT suggestive of ruptured ovarian cyst. labs ok, vitals ok, pain controlled. patient stable for dc and follow up with dragger. - Lab Interpretations Lab Results: Total Bilirubin 0.3 mg/dL (0.2-1.3) 09/27/18 13:25 AST 30 U/L (14-36) 09/27/18 13:25 ALT 35 U/L (7-56) 09/27/18 13:25 Alkaline Phosphatase 80 U/L (38-126) 09/27/18 13:25 Total Protein 7.4 g/dL (5.8-8.3) 09/27/18 13:25 Albumin 4.5 g/dL (3.0-4.8) 09/27/18 13:25 Globulin 2.9 gm/dL 09/27/18 13:25 Albumin/Globulin Ratio 1.6 (1.1-1.8) 09/27/18 13:25 Urine Color Yellow (YELLOW) 09/27/18 13:25 Urine Appearance Clear (CLEAR) 09/27/18 13:25 Urine pH 6.5 (4.7-8.0) 09/27/18 13:25 Ur Specific [place] 1.010 (1.005-1.035) 09/27/18 13:25 Urine Protein Negative mg/dL (<30 mg/dL) 09/27/18 13:25 Urine Glucose (UA) Negative mg/dL (NEGATIVE) 09/27/18 13:25 Urine Ketones Negative mg/dL (NEGATIVE) 09/27/18 13:25 Urine Blood Negative (NEGATIVE) 09/27/18 13:25 Urine Nitrate Negative (NEGATIVE) 09/27/18 13:25 Urine Bilirubin Negative (NEGATIVE) 09/27/18 13:25 Urine Urobilinogen 0.2 E.U./dL (<1 E.U./dL) 09/27/18 13:25 Ur Leukocyte Esterase Negative Rey/uL (NEGATIVE) 09/27/18 13:25 - RAD Interpretation Radiology Orders: 09/27/18 12:25 TRANSVAGINAL [US] Stat - Scribe Statement The provider has reviewed the documentation as recorded by the Scribsondra Nunn training with Sakina All medical record entries made by the Scribe were at my direction and personally dictated by me. I have reviewed the chart and agree that the record accurately reflects my personal performance of the history, physical exam, medical decision making, and the department course for this patient. I have also personally directed, reviewed, and agree with the discharge instructions and disposition. Disposition/Present on Arrival - Present on Arrival Any Indicators Present on Arrival: No History of DVT/PE: No History of Uncontrolled Diabetes: No Urinary Catheter: No History of Decub. Ulcer: No History Surgical Site Infection Following: None - Disposition Have Diagnosis and Disposition been Completed?: Yes Diagnosis: Ruptured ovarian cyst Disposition: HOME/ ROUTINE Disposition Time: 16:46 Patient Plan: Discharge Condition: STABLE Discharge Instructions (ExitCare): Ovarian Cysts Additional Instructions: return for any new or worsening symptoms. follow up with a garment sewing machine operator for the ovarian cyst. Prescriptions: RX: Ibuprofen [Motrin Tab] 600 mg PO QID #42 tab Referrals: [facility] [Outside] - Follow up with primary Charles Malik MD [Staff Provider] - Follow up with primary Forms: [employer] ([employer]), WORK NOTE
--- NOTE | 2018-09-27 14:46 | US ---
Date of service: 09/27/2018 HISTORY: left pelvic pain, torsion vs other COMPARISON: None available. TECHNIQUE: Transvaginal pelvic ultrasound was performed with longitudinal and transverse images submitted for interpretation. FINDINGS: UTERUS: Measures 9.2 x 4.4 x 5.7 cm. Mildly heterogeneous myometrial echotexture is appreciated throughout the uterus without focal cystic or solid lesion associated. ENDOMETRIUM: Measures 10.0 mm in diameter. Somewhat inhomogeneous but without focal mass or cyst related. No fluid collection. CERVIX: A nabothian cyst is identified anteriorly with the cervix otherwise unremarkable. RIGHT OVARY: Measures 3.6 x 3.2 x 1.7 cm. No solid mass. Normal flow. LEFT OVARY: Measures 4.4 x 1.5 x 3.8 cm. No solid mass. Normal flow. Few small cysts are identified with the largest either septated or 2 adjacent cysts measuring in total dimension of 2.1 x 1.1 x 1.7 cm. FREE FLUID: No significant free fluid noted. OTHER FINDINGS: None. IMPRESSION: Stable 1 cm left adnexal cyst minimally complicated. No evidence of ovarian torsion bilaterally. Unremarkable right ovary and inhomogeneous but nonfocal myometrium and endometrial tissue. Nabothian cysts at the cervix.
--- NOTE | 2018-09-27 16:16 | CT ---
Date of service: 09/27/2018 PROCEDURE: CT Abdomen and Pelvis with contrast HISTORY: llq pain, diverticulitis COMPARISON: None. TECHNIQUE: Contrast dose: 150 mL Omnipaque 350 Radiation dose: Total exam DLP = 776.86 mGy-cm. This CT exam was performed using one or more of the following dose reduction techniques: Automated exposure control, adjustment of the mA and/or kV according to patient size, and/or use of iterative reconstruction technique. FINDINGS: LOWER THORAX: Unremarkable. LIVER: Unremarkable. No gross lesion or ductal dilatation. GALLBLADDER AND BILE DUCTS: Unremarkable. PANCREAS: Unremarkable. No gross lesion or ductal dilatation. SPLEEN: Unremarkable. ADRENALS: Unremarkable. No mass. KIDNEYS AND URETERS: Unremarkable. No hydronephrosis. No solid mass. VASCULATURE: Unremarkable. No aortic aneurysm. No aortic atherosclerotic calcification or mural plaque present. BOWEL: Few sigmoid diverticula. No evidence of diverticulitis.. APPENDIX: Normal appendix. PERITONEUM: Unremarkable. No free fluid. No free air. LYMPH NODES: Unremarkable. No enlarged lymph nodes. BLADDER: Unremarkable. REPRODUCTIVE: Normal uterus. There is a slightly irregular curvilinear enhancing structure in the left ovary most likely representing a ruptured or involuting follicular cyst. BONES: No acute fracture. OTHER FINDINGS: None. IMPRESSION: No evidence of diverticulitis. Curvilinear enhancement in left ovary may reflect a ruptured or involuting ovarian follicular cyst. No other significant abnormality.
[2018-09-27 16:59] VITALS: BP 124/70
[2018-09-27 17:10] VITALS: TEMP 98
== END 2018-09-27 17:00 | disposition home or self-care (01) ==
LOC: ED 11:37
DX: N83.202 Unspecified ovarian cyst, left side (principal)
CPT/HCPCS: 74177; 76830; 80053; 81003; 81025; 85025; 99283; Q9967